=== PATIENT | male | born 1990 | race Two or more races ===

== ENCOUNTER 2020-11-18 11:09 | Outpatient (REF) | payer BC, SELFPAY | END 2020-11-18 11:10 | disposition home or self-care (01) | LOC: HO.LAB 11:09 | PROVIDERS: Visit Provider Internal Medicine | DX: Z20.822 Contact with and (suspected) exposure to COVID-19 (principal) | CPT/HCPCS: 36415; C9803; U0003 ==

== ENCOUNTER 2020-11-20 10:58 | Outpatient (REF) | payer BC, SELFPAY | END 2020-11-20 10:59 | disposition home or self-care (01) | LOC: HO.LAB 10:58 | PROVIDERS: Visit Provider Internal Medicine | DX: Z20.822 Contact with and (suspected) exposure to COVID-19 (principal) | CPT/HCPCS: 36415; C9803; U0003 ==